=== PATIENT | male | born 1960 | race Caucasian/White ===

== ENCOUNTER 2016-10-12 20:37 | Observation (INO) ==
--- NOTE | 2016-10-12 20:41 | Emergency Department Note ---
Disposition Clinical Impression: CHF exacerbation Disposition: Admitted As Inpatient Condition: Fair Referrals: Junaid Gutierrez MD [Primary Care Provider] - Forms: ED Satisfaction Letter Time of Disposition: 21:42 ([facility]) SOB HPI - General Chief Complaint: ED Shortness of Breath/Dyspnea Stated Complaint: congestive heart failure Time Seen by Provider: 10/12/16 20:42 Source: patient Mode of arrival: ambulatory Limitations: no limitations Nursing Notes Reviewed: Yes Vital Signs Reviewed: Yes - History of Present Illness Approximate 10+ pound weight gain over the past 4 days having increasing shortness of breath and heaviness denies any nausea vomiting diaphoresis patient states he has had some swelling in his legs he denies any diarrhea melena hematochezia or hematemesis has noticed decreased urine output currently sees Marquez Thompson at [facility] because of renal insufficiency last GFR was 58 denies any additional complaints at this time history of atrial fib Pt Subjective Complaint: shortness of breath Onset (ago): day(s) (4) Context: occurred during exertion, other (wgt gain) Severity: moderate Consistency/Duration: constant, gradually worsening Improves with: nothing Worsens with: exertion Known history of: congestive heart failure, other (atrial fib) Associated symptoms: Reports: orthopnea, palpitations. Denies: chest pain, pain with inspiration, fever, cough, wheezing, sputum production, lower extremity pain, polyuria, polydipsia, parasthesias, hemoptysis, diaphoresis, nausea/vomiting, syncope, abdominal pain, rash, sense of impending doom Treatment prior to arrival: none - Related Data Home Medications Medication Instructions Recorded Confirmed Allopurinol [Zyloprim 300 MG] 600 mg PO DAILY 11/06/15 10/12/16 Amlodipine Besylate 5 mg PO DAILY 11/06/15 10/12/16 Aspirin [Lo-Dose Aspirin EC] 81 mg PO DAILY 11/06/15 10/12/16 Buspirone HCl [Buspar] 15 mg PO BID 11/06/15 10/12/16 Eplerenone [Inspra] 50 mg PO DAILY 11/06/15 10/12/16 Exenatide Microspheres [Bydureon] 2 mg SQ QWEEK 11/06/15 10/12/16 Ferrous Sulfate 325 mg PO DAILY 11/06/15 10/12/16 Insulin Glargine [Lantus] 75 unit SQ DAILY 11/06/15 10/12/16 Lisinopril 2.5 mg PO DAILY 11/06/15 10/12/16 Metformin HCl [Glucophage] 1,000 mg PO BID 11/06/15 10/12/16 Metoprolol Tartrate [Lopressor] 50 mg PO BID 11/06/15 10/12/16 Paroxetine HCl [Paroxetine] 40 mg PO DAILY 11/06/15 10/12/16 Potassium Chloride [K-Tab ER] 40 meq PO BID 11/06/15 10/12/16 Simvastatin [Zocor] 40 mg PO QAM 11/06/15 10/12/16 Warfarin [Coumadin] 4 mg PO MOWEFRSA 11/06/15 10/12/16 Warfarin [Coumadin] 6 mg PO SUTUTH 11/06/15 10/12/16 glipiZIDE [Glucotrol] 2.5 mg PO QAM 11/06/15 10/12/16 Furosemide [Lasix] 80 mg PO BID 02/07/16 10/12/16 Magnesium Oxide [Mag-Ox] 400 mg PO DAILY 02/07/16 10/12/16 Allergies Allergy/AdvReac Type Severity Reaction Status Date / Time No Known Allergies Allergy Verified 10/12/16 20:38 All systems ED: reviewed and negative except as stated. Review of Systems: As Per HPI Constitutional: Reports: weakness. Denies: fever, chills Eyes: Denies: eye pain ENT ED: Denies: ear pain Cardiovascular: Reports: dyspnea on exertion, orthopnea. Denies: chest pain, palpitations Respiratory: Reports: cough, dyspnea Gastrointestinal: Denies: abdominal pain, nausea, vomiting Genitourinary: Denies: urgency, dysuria, frequency Musculoskeletal: Denies: back pain Integumentary: Denies: abrasion Neurological: Denies: headache Psychiatric: Denies: anxiety Endocrine: Denies: fatigue Hematological/Lymphatic: Denies: easy bleeding Allergic/Immunologic: Denies: facial swelling Past Medical History - Past Medical History Attestation: Yes The following information was validated with the patient. Source: patient, old records reviewed, nursing notes reviewed Medical history: Reports: arthritis, atrial fibrillation, CHF, diabetes, GERD, hyperlipidemia, hypertension, osteoporosis, renal disease, other Surgical history: Reports: other (Hemorrhoidectomy) Psychiatric history: Reports: anxiety, depression - Social History Smoking Status: Former smoker Smokeless Tobacco Status: No Alcohol use: Reports: none Drug use: Reports: none Physical Exam - General Limitations: no limitations General appearance: alert, in no apparent distress, anxious, obese - Head Head exam: atraumatic, normocephalic, normal inspection - Eye Eye exam: Present: normal appearance, PERRL, EOMI - ENT ENT exam: normal exam, normal oropharynx, mucous membranes moist, normal external ear exam - Neck Neck exam: Present: normal inspection, full ROM, trachea midline - Chest Chest inspection: Present: normal inspection, symmetric chest wall rise - Respiratory Respiratory exam: Present: normal lung sounds bilaterally - Cardiovascular Cardiovascular exam: Present: regular rate, normal rhythm, normal heart sounds - Abdominal Exam Abdominal exam: Present: soft, Non-Tender, normal bowel sounds. Absent: mass, pulsatile mass - Extremities Exam Extremities exam: Present: normal inspection, full ROM, normal capillary refill , pedal edema (mild). Absent: tenderness, calf tenderness - Expanded Lower Extremity Exam Neurovascular/Tendon exam: Present: normal capillary refill, normal fine/light touch Gait: observed and normal - Back Exam Back exam: Present: normal inspection, full ROM. Absent: muscle spasm - Neurological Exam Neurological exam: Present: alert, oriented X3, CN II-XII intact, normal gait - Psychiatric Psychiatric exam: Present: normal affect, normal mood - Skin Skin exam: Present: warm, dry, intact, normal color Course Course Narrative: Seen and examined given a dose of Bumex admitted for observation Vital Signs Temperature 98.3 F 10/12/16 20:42 Pulse Rate 70 10/12/16 20:42 Respiratory Rate 20 10/12/16 20:42 Blood Pressure 118/65 10/12/16 20:42 O2 Sat by Pulse Oximetry 94 10/12/16 20:42 Temperature 98.7 F 10/12/16 21:03 Pulse Rate 77 10/12/16 21:03 Respiratory Rate 20 10/12/16 21:03 Blood Pressure 133/74 10/12/16 21:03 O2 Sat by Pulse Oximetry 95 10/12/16 21:03 Oxygen Delivery Oxygen Delivery Room Air Shortness of Breath/Dyspnea - Differential Diagnosis Likely: congestive heart failure - Medical Records Medical records reviewed: Yes I reviewed the patient's medical records. - Lab Data Lab results reviewed: Yes I reviewed the patient's lab results. Result diagrams: 10/12/16 20:53 10/12/16 20:53 Lab Results 10/12/16 10/12/16 10/12/16 Range/Units 20:53 20:53 20:53 WBC 9.9 (4.3-11.1) K/mcL RBC 4.60 (4.19-5.50) M/mcL Hgb 12.3 L (12.9-16.9) g/dL Hct 36.8 L (37.5-50.1) % MCV 80.0 L (83.0-100.0) fL MCH 26.7 L (28.0-33.3) pg MCHC 33.4 (31.6-35.5) g/dL RDW 17.5 H (11.5-14.5) % Plt Count 168 (140-400) K/mcL MPV 11.4 (9.4-12.4) fL Immature Gran % 0.3 (0-4) % Seg Neutrophils % 78.0 % Lymphocytes % 10.3 % Monocytes % 11.1 % Eosinophils % 0.2 % Basophils % 0.1 % Neutrophils # 7.8 (1.6-8.9) K/mcL Lymphocytes # 1.0 (0.6-4.6) K/mcL Monocytes # 1.1 (0.0-1.3) K/mcL Eosinophils # 0.0 (0.0-0.6) K/mcL Basophils # 0.0 (0.0-0.2) K/mcL PT (9.4-12.1) Seconds INR APTT 48.5 H (26.0-36.0) Seconds Sodium 136 (136-145) mEq/L Potassium 4.3 (3.5-4.5) mEq/L Chloride 102 (98-109) mEq/L Carbon Dioxide 21 (19-29) mEq/L BUN 35 H (8-26) mg/dL Creatinine 1.52 H (0.72-1.25) mg/dL Est GFR ( Amer) 58 L (> 60) Est GFR (Non-Af Amer) 48 L (> 60) BUN/Creatinine Ratio 23 (6-26) Glucose 103 H (70-99) mg/dL Calculated Osmolality 290 (280-300) Calcium 9.4 (8.6-10.8) mg/dL Troponin I (0-0.03) ng/mL B-Natriuretic Peptide (0-100) pg/mL 10/12/16 10/12/16 10/12/16 Range/Units 20:53 20:53 20:53 WBC (4.3-11.1) K/mcL RBC (4.19-5.50) M/mcL Hgb (12.9-16.9) g/dL Hct (37.5-50.1) % MCV (83.0-100.0) fL MCH (28.0-33.3) pg MCHC (31.6-35.5) g/dL RDW (11.5-14.5) % Plt Count (140-400) K/mcL MPV (9.4-12.4) fL Immature Gran % (0-4) % Seg Neutrophils % % Lymphocytes % % Monocytes % % Eosinophils % % Basophils % % Neutrophils # (1.6-8.9) K/mcL Lymphocytes # (0.6-4.6) K/mcL Monocytes # (0.0-1.3) K/mcL Eosinophils # (0.0-0.6) K/mcL Basophils # (0.0-0.2) K/mcL PT 38.9 H (9.4-12.1) Seconds INR 3.5 APTT (26.0-36.0) Seconds Sodium (136-145) mEq/L Potassium (3.5-4.5) mEq/L Chloride (98-109) mEq/L Carbon Dioxide (19-29) mEq/L BUN (8-26) mg/dL Creatinine (0.72-1.25) mg/dL Est GFR ( Amer) (> 60) Est GFR (Non-Af Amer) (> 60) BUN/Creatinine Ratio (6-26) Glucose (70-99) mg/dL Calculated Osmolality (280-300) Calcium (8.6-10.8) mg/dL Troponin I 0.07 H* (0-0.03) ng/mL B-Natriuretic Peptide 442 H (0-100) pg/mL - Radiology Data Radiology results reviewed: Yes I reviewed the patient's radiology results. ITS Impressions Chest X-Ray 10/12/16 20:39 IMPRESSION: Stable cardiomegaly and prominence of the left pulmonary artery without acute findings. D/ / 10/12/2016 21:11:58 Pura Colorado MD / meghan Interpreting Provider: Pura Colorado MD - EKG Data EKG attestation: Yes I reviewed and interpreted this EKG. EKG results narrative: EKG atrial fib rate 74 QRS 82 QT 361 axis XXXV PVC unifocal Critical Care Time Critical Care Time: No
[2016-10-12 21:05] LABS: Basophils % 0.1 %; Eosinophils % 0.2 %; Hematocrit 36.8 % (37.5-50.1); Hemoglobin 12.3 g/dL (12.9-16.9); Immature Granulocytes % 0.3 % (0-4); Lymphocytes % 10.3 %; Mean Corpuscular HGB Conc 33.4 g/dL (31.6-35.5); Mean Corpuscular Hemoglobin 26.7 pg (28.0-33.3); Mean Platelet Volume 11.4 fL (9.4-12.4); Monocytes # 1.1 K/mcL (0.0-1.3); Monocytes % 11.1 %; Neutrophils # 7.8 K/mcL (1.6-8.9); Platelet Count 168 K/mcL (140-400); Red Cell Distribution Width 17.5 % (11.5-14.5)
[2016-10-12 21:10] LABS: INR 3.5; Prothrombin Time 38.9 Seconds (9.4-12.1)
[2016-10-12 21:21] LABS: Calcium 9.4 mg/dL (8.6-10.8); Potassium 4.3 mEq/L (3.5-4.5)
[2016-10-12] MEDS ORDERED: Bumetanide 1 MG/4 ML VIAL IVP ONE (21:38)
[2016-10-12] MEDS ORDERED: Dextrose Gel 15 GM PO PRN ×2 (22:25)
[2016-10-12] MEDS ORDERED: D5% in Water 1,000 ML IVC PRN (22:25)
[2016-10-12] MEDS ORDERED: Naloxone 0.4 MG/ML INJ IVP PRN (22:25)
[2016-10-12] MEDS ORDERED: *HR* Dextrose 50 % in Water (Syg) 50 ML SYRINGE IVP PRN (22:25)
[2016-10-12] MEDS ORDERED: BYDUREON 2 MG SQ SCH (22:25)
[2016-10-13 04:15] LABS: Basophils % 0.2 %; Eosinophils % 0.3 %; Hematocrit 37.8 % (37.5-50.1); Hemoglobin 12.3 g/dL (12.9-16.9); Immature Granulocytes % 0.3 % (0-4); Lymphocytes # 1.5 K/mcL (0.6-4.6); Lymphocytes % 12.6 %; Mean Corpuscular HGB Conc 32.5 g/dL (31.6-35.5); Mean Corpuscular Hemoglobin 26.4 pg (28.0-33.3); Mean Corpuscular Volume 81.1 fL (83.0-100.0); Mean Platelet Volume 11.4 fL (9.4-12.4); Monocytes # 1.2 K/mcL (0.0-1.3); Monocytes % 10.5 %; Platelet Count 163 K/mcL (140-400); Red Blood Count 4.66 M/mcL (4.19-5.50); Red Cell Distribution Width 17.7 % (11.5-14.5); Segmented Neutrophils % 76.1 %
[2016-10-13 04:19] LABS: Neutrophils # 8.8 K/mcL (1.6-8.9)
[2016-10-13 04:25] LABS: INR 3.1
[2016-10-13 04:28] LABS: Activated Partial Thrombo Time 46.9 Seconds (26.0-36.0)
[2016-10-13 04:35] LABS: BUN/Creatinine Ratio 24 (6-26); Blood Urea Nitrogen 33 mg/dL (8-26); Calcium 9.3 mg/dL (8.6-10.8); Carbon Dioxide 23 mEq/L (19-29); Chloride 102 mEq/L (98-109); Glucose 83 mg/dL (70-99); Osmolality,Calculated 292 (280-300); Potassium 4.1 mEq/L (3.5-4.5); Sodium 138 mEq/L (136-145); eGFR For African Americans > 60 (> 60); eGFR For Non-African Americans 55 (> 60)
[2016-10-13] MEDS ORDERED: Furosemide 40 MG TABLET PO SCH (08:00)
[2016-10-13] MEDS ORDERED: amLODIPine 5 MG TABLET PO SCH (09:00)
[2016-10-13] MEDS ORDERED: INSULIN GLARGINE 75 UNIT SQ SCH (09:00)
[2016-10-13] MEDS ORDERED: *HR* GlipiZIDE 5 MG TABLET PO SCH (09:00)
[2016-10-13] MEDS: Bumetanide 1 MG/4 ML VIAL IVP SCH ×2 (10:10→17:15)
[2016-10-13] MEDS: *HR* Metformin 500 MG TABLET PO SCH ×2 (10:10→17:13)
[2016-10-13] MEDS: Insulin LISPRO 300 UNITS/3 ML VIAL SQ SCH ×3 (10:10→17:14)
[2016-10-13] MEDS: Magnesium Oxide 400 MG TABLET PO SCH (10:11)
[2016-10-13] MEDS: Aspirin Enteric Coated 81 MG Tablet PO SCH (10:11)
[2016-10-13] MEDS: Eplerenone [Inspra] 50 MG PO SCH (10:15)
--- NOTE | 2016-10-13 11:45 | Electrocardiograph Report ---
[address] [place], [place] [address] Test Date: 2016-10-12 Pat Name: Jose Daniel Dean Department: [id number] Room: [facility] Gender: Contract Administration Specialist: [id number] : 1960 Requested By: Dee Stahl Order Number: [id number] Reading MD: Mal Manzo MD Measurements Intervals [place] Rate: 74 P: [place]: 0 QRS: 35 QRSD: 82 T: 56 QT: 361 QTc: 389 Interpretive Statements ATRIAL FIBRILLATION WITH ABERRANT CONDUCTION OR VENTRICULAR PREMATURE COMPLEXES LOW QRS VOLTAGE ANTEROSEPTAL MYOCARDIAL INFARCTION, PROBABLY OLD Electronically Signed On 10-13-2016 11:44:10 EDT by Mal Manzo MD
[2016-10-13] MEDS: Insulin DETEMIR 100 UNIT/ML X5UNITS SQ SCH (11:52)
--- NOTE | 2016-10-13 14:22 | Internal Med History&Physical ---
Date of Encounter: 10/13/16 Time of Encounter: 13:50 Assessment and Plan (1) CHF exacerbation Current visit: No Status: Acute He has been started on IV Bumex. We will continue Zestril but at increased dose. Will continue metoprolol but hold amlodipine. Will add isosorbide and Lanoxin. Qualifiers: Congestive heart failure type: diastolic Qualified Code(s): I50.33 - Acute on chronic diastolic (congestive) heart failure (2) Atrial fibrillation Current visit: No Status: Chronic Continue Coumadin and monitor pro time. Qualifiers: Atrial fibrillation type: chronic Qualified Code(s): I48.2 - Chronic atrial fibrillation (3) HTN (hypertension) Current visit: No Status: Chronic Continue metoprolol. Will increase Zestril and hold amlodipine. Qualifiers: Hypertension type: essential hypertension Qualified Code(s): I10 - Essential (primary) hypertension (4) Chronic kidney disease, stage 3 Current visit: No Status: Acute We will monitor renal indices periodically. (5) Anemia Current visit: Yes Status: Acute Will order anemia profile in a.m. Qualifiers: Anemia type: unspecified type Qualified Code(s): D64.9 - Anemia, unspecified Internal Medicine - H&P: HPI Chief complaint: Dyspnea Admitted From: Home Plans for Post Hospital Care: Home History of present illness: Mr. Dean is a 56 year old male who came to emergency room stating he had 4 day history of increasing dyspnea. There was no chest pain or cough associated. He was evaluated in the emergency room and felt to have exacerbation of heart failure. He was admitted to [facility] floor for ongoing care needs. He states his dyspnea has improved now but he is not back to his baseline. His cardiovascular history is significant for hypertension. He thinks he had NV in 2013. He has chronic atrial fibrillation. He denies DVT or pulmonary embolus. An echocardiogram done 11/06/2015 showed LVEF of 50%. There was indeterminate diastolic function because of underlying atrial fibrillation. There was increased thickness of the interventricular septum at 1.5 cm. No significant valvular abnormalities were documented. Past Med Surg Social Fam HX - Past Medical History Medical history: arthritis, atrial fibrillation, CHF, diabetes, GERD, hyperlipidemia, hypertension, osteoporosis, renal disease, other Psychiatric history: anxiety, depression - Past Surgical History Surgical History: other - Social History Smoking Status: Former smoker Smokeless Tobacco Status: No Alcohol use: none Drug use: none - Family History Sister Family Member Ethnicity: Non- Living Status: Hx Family Cardiac Disorders: Yes Hx Family Respiratory Disorders: No Hx Family Cancer: No Hx Family GI Disorders: No Hx Family Endocrine Disorder: No Hx Family Neuromuscular Disorders: No Hx Family Neurologic Disorders: No Hx Family HEENT Disorders: No Hx Family Autoimmune Disorders: No Mother Age: 82 Family Member Ethnicity: Non- Living Status: Still Living Hx Family Cancer: Yes (breast cancer) Father Family Member Ethnicity: Non- Living Status: Age at : 86 Cause of : alzheimers Hx Family Cardiac Disorders: Yes Hx Family Respiratory Disorders: No Hx Family Cancer: No Hx Family GI Disorders: No Hx Family Endocrine Disorder: Yes (DM) Hx Family Neuromuscular Disorders: No Hx Family Neurologic Disorders: Yes (Alzheimers) Hx Family HEENT Disorders: No Hx Family Autoimmune Disorders: No Internal Medicine - H&P: Meds Allopurinol [Zyloprim 300 MG] 600 mg PO DAILY 11/06/15 [History] Amlodipine Besylate 5 mg PO DAILY 11/06/15 [History] Aspirin [Lo-Dose Aspirin EC] 81 mg PO DAILY 11/06/15 [History] Buspirone HCl [Buspar] 15 mg PO BID 11/06/15 [History] Eplerenone [Inspra] 50 mg PO DAILY 11/06/15 [History] Exenatide Microspheres [Bydureon] 2 mg SQ QWEEK 11/06/15 [History] Ferrous Sulfate 325 mg PO DAILY 11/06/15 [History] Insulin Glargine [Lantus] 75 unit SQ DAILY 11/06/15 [History] Lisinopril 2.5 mg PO DAILY 11/06/15 [History] Metformin HCl [Glucophage] 1,000 mg PO BID 11/06/15 [History] Metoprolol Tartrate [Lopressor] 50 mg PO BID 11/06/15 [History] Paroxetine HCl [Paroxetine] 40 mg PO DAILY 11/06/15 [History] Potassium Chloride [K-Tab ER] 40 meq PO BID 11/06/15 [History] Simvastatin [Zocor] 40 mg PO QAM 11/06/15 [History] Warfarin [Coumadin] 4 mg PO MOWEFRSA 11/06/15 [History] Warfarin [Coumadin] 6 mg PO SUTUTH 11/06/15 [History] glipiZIDE [Glucotrol] 2.5 mg PO QAM 11/06/15 [History] Furosemide [Lasix] 80 mg PO BID 02/07/16 [History] Magnesium Oxide [Mag-Ox] 400 mg PO DAILY 02/07/16 [History] Allergies No Known Allergies Allergy (Verified 10/12/16 20:38) All Systems PM: A 10-system review of systems was performed and is negative for pertinent findings except as documented above in the HPI. Review of systems: Gen.: He states his weight has increased 15 pounds in the past week. He reports prior to that his weight had been stable for many months Cardiovascular: As per history of present illness Respiratory: He smoked for approximately 5 years in his 20s. He denies chronic lung disease GI: He denies disorders of his liver gallbladder or exocrine pancreas : He denies hematuria or dysuria. He has chronic kidney disease stage III and follows with a [place] freedom of information officer Neurologic: He denies large distribution strokes or seizures. Endocrine: He was diagnosed with DM 2 approximately 10 years ago. He has hyperlipidemia but denies thyroid disease Hematology/oncology: He has anemia. He denies internal malignancies or other blood disorders Psychiatric: He has anxiety and depression Musk skeletal: He has gout denies other bone joint or muscle disorders. - Constitutional Vitals: Temp Pulse Resp BP Pulse Ox 99.0 F 62 18 125/70 91 10/13/16 10:43 10/13/16 10:43 10/13/16 10:43 10/13/16 10:43 10/13/16 10:43 Exam: Gen.: He is a well-developed well-nourished male who appears in no acute distress at present time HEENT: Head is atraumatic and normocephalic. Eyes: EOMI. There is no scleral icterus. Mouth: Mucosa is moist. Neck: Supple and nontender. There is no thyromegaly or adenopathy noted. Heart: Regular without murmurs gallops or ectopics Lungs: No wheezes or crackles are heard. Abdomen: Soft and nontender. No masses or guarding are noted. Extremities: There is trace edema of his lower anterior alvarado bilaterally. He is wearing shoes and socks which I did not remove. There are minimal DJD changes of his hands. Neurologic: Mental status: He is talkative and a good historian. Cranial nerves : Smile is symmetric. Forehead wrinkles bilaterally. Tongue protrudes midline. EOMI. Motor: There is no pronator drift. Cerebellar: Finger to nose is intact bilaterally. Skin: Warm and dry Internal Med - H&P Results - Labs CBC & Chem 7: 10/13/16 03:45 10/13/16 03:45 Labs: Short CBC 10/13/16 Range/Units 03:45 WBC 11.5 H (4.3-11.1) K/mcL Hgb 12.3 L (12.9-16.9) g/dL Hct 37.8 (37.5-50.1) % Plt Count 163 (140-400) K/mcL Neutrophils # 8.8 (1.6-8.9) K/mcL BMP 10/13/16 03:45 Sodium 138 Potassium 4.1 Chloride 102 Carbon Dioxide 23 BUN 33 H Creatinine 1.35 H Glucose 83 Calcium 9.3 - VTE Reasons for not Prescribing Prophylaxis: Not indicated-Anticoagulated or INR therapeutic
[2016-10-13] MEDS: Isosorbide MONOnitrate (24 HR) 30 MG TAB.ER.24H PO SCH (17:13)
[2016-10-13] MEDS: *HR* Digoxin 0.125 MG TABLET PO SCH (17:13)
[2016-10-13] MEDS ORDERED: *HR* Warfarin 2 MG TABLET PO SCH (18:00)
[2016-10-13] MEDS ORDERED: Acetaminophen 325 MG TABLET PO PRN (19:10)
[2016-10-13] MEDS ORDERED: levoFLOXacin 500 MG TABLET PO ONE (20:00)
[2016-10-14 06:06] LABS: Basophils % 0.3 %; Eosinophils # 0.1 K/mcL (0.0-0.6); Eosinophils % 0.6 %; Hematocrit 34.6 % (37.5-50.1); Hemoglobin 11.3 g/dL (12.9-16.9); Immature Granulocytes % 0.3 % (0-4); Lymphocytes # 1.3 K/mcL (0.6-4.6); Lymphocytes % 14.5 %; Mean Corpuscular HGB Conc 32.7 g/dL (31.6-35.5); Mean Corpuscular Hemoglobin 26.3 pg (28.0-33.3); Mean Corpuscular Volume 80.5 fL (83.0-100.0); Mean Platelet Volume 11.9 fL (9.4-12.4); Monocytes % 11.6 %; Neutrophils # 6.4 K/mcL (1.6-8.9); Platelet Count 168 K/mcL (140-400); Red Cell Distribution Width 17.5 % (11.5-14.5); Segmented Neutrophils % 72.7 %
[2016-10-14 06:26] LABS: Alanine Aminotransferase 52 Units/L (0-55); Albumin 2.9 g/dL (3.5-5.0); Albumin/Globulin Ratio 0.9 (1.1-2.2); Alkaline Phosphatase 206 Units/L (38-126); Aspartate Amino Transferase 37 Units/L (5-34); BUN/Creatinine Ratio 26 (6-26); Bilirubin,Total 2.1 mg/dL (0.2-1.2); Blood Urea Nitrogen 34 mg/dL (8-26); Calcium 9.3 mg/dL (8.6-10.8); Carbon Dioxide 22 mEq/L (19-29); Chloride 102 mEq/L (98-109); Globulin 3.2 g/dL (2.4-3.5); Glucose 110 mg/dL (70-99); Magnesium 1.9 mg/dL (1.6-2.6); Osmolality,Calculated 290 (280-300); Sodium 136 mEq/L (136-145); Total Protein 6.1 g/dL (6.0-8.3); eGFR For African Americans > 60 (> 60); eGFR For Non-African Americans 57 (> 60)
[2016-10-14] MEDS ORDERED: *HR* GlipiZIDE 5 MG TABLET PO SCH (08:00)
[2016-10-14] MEDS: Insulin LISPRO 300 UNITS/3 ML VIAL SQ SCH (08:19)
[2016-10-14] MEDS: *HR* Metformin 500 MG TABLET PO SCH (09:11)
[2016-10-14] MEDS: Isosorbide MONOnitrate (24 HR) 30 MG TAB.ER.24H PO SCH (09:13)
[2016-10-14] MEDS: *HR* Digoxin 0.125 MG TABLET PO SCH (09:14)
[2016-10-14] MEDS: Magnesium Oxide 400 MG TABLET PO SCH (09:15)
[2016-10-14] MEDS: Aspirin Enteric Coated 81 MG Tablet PO SCH (09:16)
[2016-10-14] MEDS: Bumetanide 1 MG/4 ML VIAL IVP SCH (09:19)
[2016-10-14] MEDS: Insulin DETEMIR 100 UNIT/ML X5UNITS SQ SCH (09:19)
[2016-10-14] MEDS: Eplerenone [Inspra] 50 MG PO SCH (09:24)
--- NOTE | 2016-10-14 09:55 | Discharge Summary ---
Date of Encounter: 10/14/16 Time of Encounter: 09:45 - Discharge Diagnosis (1) CHF exacerbation Priority: Primary Status: Acute Qualifiers: Congestive heart failure type: diastolic Qualified Code(s): I50.33 - Acute on chronic diastolic (congestive) heart failure (2) Atrial fibrillation Priority: Secondary Status: Chronic Qualifiers: Atrial fibrillation type: chronic Qualified Code(s): I48.2 - Chronic atrial fibrillation (3) HTN (hypertension) Priority: Secondary Status: Chronic Qualifiers: Hypertension type: essential hypertension Qualified Code(s): I10 - Essential (primary) hypertension (4) Chronic kidney disease, stage 3 Priority: Secondary Status: Acute (5) Anemia Priority: Secondary Status: Acute Qualifiers: Anemia type: unspecified type Qualified Code(s): D64.9 - Anemia, unspecified - Discharge Medications Prescriptions: Bumetanide [Bumex] 1 mg PO BID #60 tablet Digoxin [Lanoxin] 0.125 mg PO DAILY #30 tab Isosorbide MONOnitrate (24 HR) [Imdur] 30 mg PO DAILY #30 tab.er.24h levoFLOXacin [Levaquin] 500 mg PO DAILY #3 tab Lisinopril [Zestril] 10 mg PO DAILY #30 tab Home Medications: Allopurinol [Zyloprim 300 MG] 600 mg PO DAILY 11/06/15 [History] Aspirin [Lo-Dose Aspirin EC] 81 mg PO DAILY 11/06/15 [History] Buspirone HCl [Buspar] 15 mg PO BID 11/06/15 [History] Eplerenone [Inspra] 50 mg PO DAILY 11/06/15 [History] Exenatide Microspheres [Bydureon] 2 mg SQ QWEEK 11/06/15 [History] Ferrous Sulfate 325 mg PO DAILY 11/06/15 [History] Insulin Glargine [Lantus] 75 unit SQ DAILY 11/06/15 [History] Metformin HCl [Glucophage] 1,000 mg PO BID 11/06/15 [History] Metoprolol Tartrate [Lopressor] 50 mg PO BID 11/06/15 [History] Paroxetine HCl [Paroxetine] 40 mg PO DAILY 11/06/15 [History] Potassium Chloride [K-Tab ER] 40 meq PO BID 11/06/15 [History] Simvastatin [Zocor] 40 mg PO QAM 11/06/15 [History] Warfarin [Coumadin] 4 mg PO MOWEFRSA 11/06/15 [History] Warfarin [Coumadin] 6 mg PO SUTUTH 11/06/15 [History] glipiZIDE [Glucotrol] 2.5 mg PO QAM 11/06/15 [History] Magnesium Oxide [Mag-Ox] 400 mg PO DAILY 02/07/16 [History] Bumetanide [Bumex] 1 mg PO BID #60 tablet 10/14/16 [Rx] Digoxin [Lanoxin] 0.125 mg PO DAILY #30 tab 10/14/16 [Rx] Isosorbide MONOnitrate (24 HR) [Imdur] 30 mg PO DAILY #30 tab.er.24h 10/14/16 [ Rx] Lisinopril [Zestril] 10 mg PO DAILY #30 tab 10/14/16 [Rx] levoFLOXacin [Levaquin] 500 mg PO DAILY #3 tab 10/14/16 [Rx] Allergies/Adverse Reactions: Allergies No Known Allergies Allergy (Verified 10/12/16 20:38) Date of admission: 10/12/16 21:51 Primary care physician: Junaid Gutierrez MD - Patient Status Disposition: Home, Self-Care Condition: Fair Functional capacity at discharge: independent ambulation Overall status at discharge: patient is progressing back to baseline - Discharge Instructions Follow Up With: Junaid Gutierrez MD [Primary Care Provider] - 1 week - Diet and Activity Activity: resume usual activities as tolerated Diet: advance to your usual diet Hospital course: Mr. Dean is a 56 year old male who came to emergency room stating he had 4 day history of increasing dyspnea. There was no chest pain or cough associated. He was evaluated in the emergency room and felt to have exacerbation of heart failure. He was admitted to [facility] for ongoing care needs. Initial orders were written by the emergency room physician. I saw him on October 13 and performed history and physical. He was started on IV Bumex. Zestril dose was increased 10 mg daily. Amlodipine was discontinued. Lanoxin and Imdur were added and metoprolol continued as at home. He had clinical improvement with decreased dyspnea when I saw him the following day. His weight decreased from 133.81 kg on admission to 130.65 kg at discharge. He will continue the adjusted medication regimen at discharge and follow with his PCP Dr. Gutierrez within 1 week. Renal function improved with creatinine decreasing to 1.31 and estimated GFR rising to 57 by the day of discharge. Anemia testing was ordered with results pending at time of discharge. Room air oximetry be checked on 6 minute walk prior to discharge. He was given oral Levaquin the evening of October 13 for low-grade temperature and WBC elevation with minimal left shift. He will continue with oral Levaquin for 3 additional days at discharge. He will follow with his PCP Dr. Gutierrez within 1 week. - Time Spent with Patient Total time spent providing and/or coordinating discharge services: - Constitutional Vitals: Temp Pulse Resp BP Pulse Ox 98.4 F 78 20 102/58 94 10/14/16 06:34 10/14/16 06:34 10/14/16 06:34 10/14/16 06:34 10/14/16 06:34 - VTE Reasons for not Prescribing Prophylaxis: Not indicated-Anticoagulated or INR therapeutic
[2016-10-14 10:17] LABS: % Iron Saturation 6 % (20-55); Iron 19 mcg/dL (65-175); Transferrin 234 mg/dL (174-364)
[2016-10-14 10:21] VITALS: BP 162/68
[2016-10-14 10:35] LABS: Ferritin 184 ng/ml (22-275)
[2016-10-14 10:48] LABS: Folate 10.9 ng/mL (7.0-31.4)
[2016-10-14] MEDS ORDERED: *HR* Warfarin 3 MG TABLET PO SCH (18:00)
== END 2016-10-14 11:45 | disposition home or self-care (01) ==
LOC: EMEROOPIK 20:37 → INPPIK 20:37
PROVIDERS: ADMIT Internal Medicine; ATTEND Internal Medicine